=== PATIENT | female | born 1985 | race American Indian/Alaskan Native ===

== ENCOUNTER 2016-10-05 07:34 | Emergency (ER) | payer BC ==
[2016-10-05 08:48] LABS: Bacteria,Urine 1+ /HPF (Negative); Bilirubin,Urine NEG (Negative); Blood,Urine LG (Negative); Ketones,Urine NEG (Negative); Leukocyte Esterase,Urine TR (Negative); Mucus,Urine FEW /HPF; Nitrite,Urine NEG (Negative); Protein,Urine <15 mg/dL mg/dL (Negative); Urobilinogen,Urine < 2.0 mg/dL (<2.0)
--- NOTE | 2016-10-05 09:42 | Emergency Department Report ---
HPI - General Chief Complaint: Vaginal Bleeding Time Seen by Provider: 10/05/16 09:33 - HPI HPI: PATIENT PRESENT TO ER WITH SCANT VAGINAL BLEEDING, SHE STATES SHE ONLY NOTICED BLOOD WHEN SHE WIPES. PATIENT IS , STATES SHE HAD A POSITIVE TEST AT HOME AND ESTIMATES THAT SHE IS ABOUT 5-6 WEEKS . NO PELVIC PAIN, NO N /V, DIARRHEA. ED Past Medical Hx - Past Medical History Previous Medical History?: No - Surgical History Past Surgical History?: No - Family History Family history: hypertension - Social History Smoking Status: Never Smoker Substance Use Type: None ED Review of Systems ROS: Stated complaint: 6 WKS PREG/POSS MISCARRIAGE Other details as noted in HPI Comment: All other systems reviewed and negative Endocrine: no symptoms reported Gastrointestinal: as per HPI Genitourinary: as per HPI Physical Exam - Physical Exam Vital Signs: Vital Signs 10/05/16 08:22 Temperature 98.4 F Pulse Rate 66 Respiratory 18 Rate Blood Pressure 126/78 O2 Sat by Pulse 99 Oximetry Physical Exam: vitals reviewed gen: alert and oriented x3, Tearful heent: perrla, eomi cv: rrr, nl s1, s2 lungs: cta bila abd: s,nt,nd, pos bs ext: no edema gu: pt refused neuro: no deficits psych: NORMAL MOOD skin: normal turgor : vag bleeding, os closed, no cervical tenderness ED Course Vital Signs 10/05/16 08:22 Temperature 98.4 F Pulse Rate 66 Respiratory 18 Rate Blood Pressure 126/78 O2 Sat by Pulse 99 Oximetry ED Medical Decision Making - Lab Data Result diagrams: 10/05/16 09:38 10/05/16 09:38 Critical care attestation.: If time is entered above; I have spent that time in minutes in the direct care of this critically ill patient, excluding procedure time. ED Disposition Clinical Impression: Vaginal bleeding before 22 weeks gestation, Threatened miscarriage in early Disposition: DC-01 TO HOME OR SELFCARE Is pt being admited?: No Does the pt Need Aspirin: No Condition: Stable Instructions: Threatened Miscarriage (ED) Referrals: PRIMARY CARE, [Primary Care Provider] - 3-5 Days ELIOT AGUILAR MD [Staff Physician] - 3-5 Days
[2016-10-05 10:11] LABS: Basophils % (Auto) 0.6 % (0.0-1.8); Eosinophils % (Auto) 0.3 % (0.0-4.3); Hematocrit 40.8 % (30.3-42.9); Hemoglobin 13.6 gm/dl (10.1-14.3); Mean Corpuscular HGB Conc 33 % (30-34); Mean Corpuscular Hemoglobin 30 pg (28-32); Mean Corpuscular Volume 90 fl (79-97); Platelet Count 287 K/mm3 (140-440); Red Blood Count 4.53 M/mm3 (3.65-5.03); Red Cell Distribution Width 12.7 % (13.2-15.2); White Blood Count 5.2 K/mm3 (4.5-11.0)
[2016-10-05 10:12] LABS: Alanine Aminotransferase 8 units/L (7-56); Albumin 4.3 g/dL (3.9-5); Albumin/Globulin Ratio 1.5 %; Alkaline Phosphatase 50 units/L (35-129); Anion Gap 18 mmol/L; BUN/Creatinine Ratio 13.33; Blood Urea Nitrogen 8 mg/dL (7-17); Calcium 9.2 mg/dL (8.4-10.2); Carbon Dioxide 21 mmol/L (22-30); Chloride 105.6 mmol/L (98-107); Glucose 101 mg/dL (65-100); Potassium 4.4 mmol/L (3.6-5.0); Sodium 140 mmol/L (137-145); Total Protein 7.2 g/dL (6.3-8.2)
[2016-10-05 10:38] VITALS: BP 103/58
--- NOTE | 2016-10-05 12:10 | Ultrasound Report ---
ULTRASOUND OB LESS THAN 14 WEEKS - TRANSABDOMINAL AND TRANSVAGINAL INDICATION: Vaginal bleeding for 2 days. Serum beta-hCG 1,331 units. COMPARISON: None similar during this gestation. FINDINGS: Transabdominal and transvaginal pelvic sonography performed in this patient with LMP of 08/20/2016 and estimated menstrual age of 6 weeks and 4 days. A 9.7 x 5.7 x 6.8 cm uterus demonstrates a single cystic focus along the endometrium without evidence of a pole at this time. Mean presumed gestational sac diameter of 0.7 cm corresponds to 5 weeks and 3 days. Endometrial thickness towards the fundus estimated at 1.5 cm, endovaginal image 4. Minimal pelvic free fluid. Right ovary 5 x 2.7 x 4.3 cm and demonstrates a 3.2 cm intrinsic cyst. Physiologic 2.3 x 2 x 3.3 cm left ovary with a small intrinsic follicular cyst. CONCLUSION: 1. Sonographic findings may represent an intrauterine gestational sac/early estimated at 5 weeks and 3 days with EDC of 06/04/2017, though viability yet not confirmed at this time. 2. Right ovarian cyst. Please also correlate clinically, with serial serum beta-hCG values and/or followup sonogram, as warranted. Thank you for the opportunity to participate in this patient's care.
== END 2016-10-05 12:43 | disposition home or self-care (01) ==
LOC: ED 07:34
DX: O20.0 Threatened abortion (principal); Z3A.01 Less than 8 weeks gestation of pregnancy
CPT/HCPCS: 36415; 76801; 76817; 80053; 81001; 84702; 85025; 86850; 86900; 86901; 87210; 87591

== ENCOUNTER 2016-10-07 20:04 | Emergency (ER) | payer BC ==
[2016-10-07 21:13] LABS: Basophils % (Auto) 0.4 % (0.0-1.8); Eosinophils % (Auto) 1.6 % (0.0-4.3); Hematocrit 39.8 % (30.3-42.9); Hemoglobin 13.5 gm/dl (10.1-14.3); Mean Corpuscular HGB Conc 34 % (30-34); Mean Corpuscular Hemoglobin 31 pg (28-32); Mean Corpuscular Volume 90 fl (79-97); Platelet Count 306 K/mm3 (140-440); Red Blood Count 4.41 M/mm3 (3.65-5.03); Red Cell Distribution Width 12.7 % (13.2-15.2); White Blood Count 6.8 K/mm3 (4.5-11.0)
[2016-10-08 03:40] VITALS: BP 115/67
--- NOTE | 2016-10-08 07:56 | Emergency Department Report ---
HPI - General Chief Complaint: Vaginal Bleeding Time Seen by Provider: 10/08/16 07:38 - HPI HPI: This is a 31-year-old female presents to the emergency department for reevaluation of her and/or threatened miscarriage. The patient was here 2-3 days ago, Saturday, with a positive home test and some vaginal bleeding. She was found at that time to have a beta hCG of about 1300 and had an ultrasound that showed probable intrauterine with a gestational sac but no obvious yolk sac or pole. She was told to return in a few days or see C[facility]ER for further evaluation. The patient says that the bleeding has increased and she has developed clots as well as developed some lower abdominal and/or pelvic cramping. She does not currently have an COVER MARKER. She does not take vitamins. She did not take anything for discomfort prior to presentation. No recent travel or sick contacts at home. She is with 2 previous abortions. ED Past Medical Hx - Past Medical History Previous Medical History?: No - Surgical History Past Surgical History?: No - Social History Smoking Status: Never Smoker Substance Use Type: None - Medications Home Medications: Home Medications Medication Instructions Recorded Confirmed Last Taken Type Vit No.130/Iron/FA 1 each PO QDAY #30 tablet 10/08/16 Unknown Rx [ Tablet] ED Review of Systems ROS: Stated complaint: 6 WKS W/ BLEEDING Other details as noted in HPI Comment: All other systems reviewed and negative Constitutional: denies: chills, fever Eyes: denies: eye pain, eye discharge, vision change ENT: denies: ear pain, throat pain Respiratory: denies: cough, shortness of breath, wheezing Cardiovascular: denies: chest pain, palpitations Gastrointestinal: abdominal pain. denies: nausea, vomiting Genitourinary: other (vaginal bleeding). denies: urgency, dysuria, discharge Musculoskeletal: denies: back pain, joint swelling, arthralgia Skin: denies: rash, lesions Neurological: denies: headache, weakness, paresthesias Physical Exam - Physical Exam Vital Signs: Vital Signs 10/07/16 10/08/16 20:32 03:38 Temperature 98.6 F 98.2 F Pulse Rate 95 H 93 H Respiratory 18 18 Rate Blood Pressure 130/78 115/67 O2 Sat by Pulse 99 100 Oximetry Physical Exam: GENERAL: The patient is well-developed well-nourished. HENT: Normocephalic. Atraumatic. Patient has moist mucous membranes. EYES: Extraocular motions are intact. Pupils equal reactive to light bilaterally. NECK: Supple. Trachea is midline. CHEST/LUNGS: Clear to auscultation. There is no respiratory distress noted. HEART/CARDIOVASCULAR: Regular. There is no tachycardia. There is no gallop rub or murmur. ABDOMEN: Abdomen is soft, nontender. Patient has normal bowel sounds. There is no abdominal distention. SKIN: Skin is warm and dry. NEURO: The patient is awake, alert, and oriented. The patient is cooperative. The patient has no focal neurologic deficits. The patient has normal speech. MUSCULOSKELETAL: There is no tenderness or deformity. There is no limitation range of motion. There is no evidence of acute injury. ED Course Vital Signs 10/07/16 10/08/16 20:32 03:38 Temperature 98.6 F 98.2 F Pulse Rate 95 H 93 H Respiratory 18 18 Rate Blood Pressure 130/78 115/67 O2 Sat by Pulse 99 100 Oximetry - Consultations Consultation #1: I spoke with the COVER MARKER on-call, Dr. Leonard Bear, who was into the imaging results and the lab results that showed only a slight increase in the beta-hCG and agrees that it sounds concerning for a impending miscarriage. He has agreed to see the patient in his office this week. 10/08/16 08:50 ED Medical Decision Making - Lab Data Result diagrams: 10/07/16 20:59 - Radiology Data Radiology results: report reviewed Transvaginal/obstetric ultrasound shows sonographic findings that suggest a complex lower uterine segment structure not entirely excluded for a gestational sac with intrinsic pole and no cardiac activity identified. If so, this would be worrisome for a nonviable gestation with the fundal endometrial cystic focus presumably a pseudo-gestational sac. Viability is not yet confirmed. Right ovarian cyst again noted. - Medical Decision Making 31-year-old female presents 3 days after her previous visit for vaginal bleeding with a positive home test. Her beta hCG was about 1350 last time and is only up at 1520 almost 3 days later. Her bleeding has increased and she has started to form clots and developed some abdominal cramping. Ultrasound shows a possible gestational sac but it is unknown whether there is a pole but certainly no cardiac activity. I spoke to the COVER MARKER on-call, Dr. Bear, who agrees that this sounds suspicious for a partial or impending miscarriage. He is agreed to see the patient in the next few days in his office. She understands and agrees the plan. - Differential Diagnosis , threatened miscarriage, spontaneous miscarriage, fibroids Critical Care Time: No Critical care attestation.: If time is entered above; I have spent that time in minutes in the direct care of this critically ill patient, excluding procedure time. ED Disposition Clinical Impression: Vaginal bleeding before 22 weeks gestation, Threatened miscarriage in early Disposition: TO HOME OR SELFCARE Is pt being admited?: No Condition: Stable Instructions: Threatened Miscarriage (ED) Additional Instructions: Please follow up with an COVER MARKER in the next few days. I've given him a referral for Dr. Leonard Bear, a local COVER MARKER, who has agreed to see you in his office. Call [facility] to make an appointment. Return to the emergency Department with any worsening of your symptoms or any acute distress. Prescriptions: Vit No.130/Iron/FA [ Tablet] 1 each PO QDAY #30 tablet Referrals: PRIMARY CAREMD [Primary Care Provider] - 3-5 Days PAULIE BEAR MD [Staff Physician] - 3-5 Days Time of Disposition: 08:52
[2016-10-08] MEDS ORDERED: TYLENOL PO ONE (07:58)
--- NOTE | 2016-10-08 08:40 | Ultrasound Report ---
ULTRASOUND OB LESS THAN 14 WEEKS - TRANSABDOMINAL AND TRANSVAGINAL INDICATION: Vaginal bleeding. Serum beta-hCG of 1,524 units. COMPARISON: 10/05/2016. FINDINGS: Transabdominal and transvaginal pelvic sonography performed in this patient with LMP of 08/20/2016 and estimated menstrual age of 7 weeks and zero days and EDC of 05/27/2017. A 9.4 x 5.9 x 6.5 cm anteverted uterus again demonstrates a single cystic focus along the fundal endometrium without intrinsic pole. It is estimated at 0.8 x 0.6 cm, endovaginal image 12. No significant free fluid. Few small nabothian cysts. However, lower uterine segment now demonstrates a complex cystic/hypoechoic focus as on endovaginal images 22-26 with few low level intrinsic echoes and also a central round echogenicity, questionable for a pole with estimated crown-rump length of 0.34 cm that would correspond to 6 weeks and zero days. No cardiac activity though obtained. This presumed gestational sac demonstrates a mean diameter of 0.7 cm, corresponding to 5 weeks and 3 days. Right ovary measures 4.2 x 3 x 3 cm and again demonstrates an approximately 3.1 cm intrinsic cyst. Physiologic left ovary measures 2.5 x 1.8 x 2 cm. CONCLUSION: 1. Sonographic findings now suggest a complex lower uterine segment structure, not entirely excluded for a gestational sac with intrinsic pole, though no cardiac activity identified. If so be the case, this would be worrisome for a nonviable gestation with the fundal endometrial cystic focus presumably a pseudogestational sac. Viability again not yet confirmed at this time. 2. Right ovarian cyst again noted. Please also correlate clinically, with serial serum beta-hCG values and/or followup sonogram, as warranted. Thank you for the opportunity to participate in this patient's care.
== END 2016-10-08 09:24 | disposition home or self-care (01) ==
LOC: ED 20:04
DX: O20.0 Threatened abortion (principal); Z3A.01 Less than 8 weeks gestation of pregnancy
CPT/HCPCS: 36415; 76801; 76817; 84702; 85025; 86850; 86900; 86901